=== PATIENT | male | born 1965 | race Hispanic/Latino ===

== ENCOUNTER 2024-04-09 08:26 | Emergency (ER) | payer OTHER ==
[~2024-04-09] VITALS: Ht 165.1 cm; Wt 86.2 kg
[2024-04-09 08:36] VITALS: PULSE 90; RESP 18; TEMP 98.1; O2SAT 98
[2024-04-09] MEDS ORDERED: CLOTRIMAZOLE15 GM TOP (09:10)
== END 2024-04-09 09:25 | disposition home or self-care (01) ==
LOC: ER 08:42
DX: N47.6 Balanoposthitis (principal); E11.9 Type 2 diabetes mellitus without complications
CPT/HCPCS: 99282